=== PATIENT | female | born 1990 | race Caucasian/White ===

== ENCOUNTER 2016-10-27 08:57 | Emergency (ER) | payer OTHER ==
[~2016-10-27] VITALS: Ht 172.7 cm; Wt 63.5 kg
--- NOTE | 2016-10-27 09:52 | ED GI/GU/ABDOMINAL COMPLAINT ---
History of Present Illness General Chief Complaint: Nausea, Vomiting, Diarrhea Stated Complaint: VOMITTING Source: patient, old records Exam Limitations: no limitations Vital Signs & Intake/Output Vital Signs & Intake/Output Vital Signs Date Time Temp Pulse Resp B/P Pulse O2 O2 Flow FiO2 Ox Delivery Rate 10/27 0901 95.0 122 18 110/79 99 Room Air Allergies Coded Allergies: NO KNOWN ALLERGIES (07/31/13) Reconcile Medications Diltiazem HCl (Cartia Xt) 180 MG CAP.ER.24H 1 CAP PO DAILY HEART (Reported) Triage Note: 26 Y/O FEMALE C/O N/V/D SINCE 399. AFEBRILE. Triage Nurses Notes Reviewed? yes LMP (ages 10-50): unknown ? n Is pt currently ? No Onset: Morning Duration: hour(s):, better, waxing and waning Timing: recent history Quality/Severity: aching, moderate, vomiting Location: epigastric Radiation: no radiation Activities at Onset: rest Prior Abdominal Problems: none Past Sexual History: Unobtainable at this time Modifying Factors: Worsens With: eating. Associated Symptoms: abdominal pain, diarrhea, loss of appetite, nausea/vomiting HPI: Several hours prior to admission patient awoke with nausea vomiting loose watery stool and epigastric moderate nonradiating pain worse with drinking. She denies fever chills chest pain cough shortness of breath headache dysuria rash bleeding . Past History Travel History Traveled to [place] past 21 day No Medical History Any Pertinent Medical History? 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 No Review of Systems Review of Systems Constitutional: Reports: see HPI, malaise. EENTM: Reports: no symptoms. Respiratory: Reports: no symptoms. Cardiovascular: Reports: no symptoms. GI: Reports: see HPI, abdominal pain, diarrhea, nausea, vomiting. Genitourinary: Reports: no symptoms. Musculoskeletal: Reports: no symptoms. Skin: Reports: no symptoms. Neurological/Psychological: Reports: no symptoms. Hematologic/Endocrine: Reports: no symptoms. Immunologic/Allergic: Reports: no symptoms. All Other Systems: Reviewed and Negative Physical Exam Physical Exam General Appearance: well developed/nourished, alert, awake, anxious, moderate distress, thin Head: atraumatic, normal appearance Eyes: Bilateral: normal appearance, PERRL, EOMI, normal inspection. Ears, Nose, Throat, Mouth: hearing grossly normal, dry mucous membranes Neck: normal inspection, supple, full range of motion, normal alignment Respiratory: normal breath sounds, chest non-tender, no respiratory distress, quiet respiration, lungs clear Cardiovascular: regular rate/rhythm, normal peripheral pulses, tachycardia, norml femoral pulses equa Peripheral Pulses: 4+ carotid (R), 4+ carotid (L), 2+ radial (R), 2+ radial (L) Gastrointestinal: normal bowel sounds, soft, non-tender, no organomegaly Back: normal inspection, normal range of motion Extremities: normal range of motion, no ligament instability Neurologic/Psych: no motor/sensory deficits, awake, alert, oriented x 3, normal gait, 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 No Severe Sepsis Present: No Septic Shock Present: No Progress Differential Diagnosis: biliary colic, gastritis, peptic ulcer Plan of Care: Orders Procedure Date/time Status LIPASE 10/27 916 Complete COMPREHENSIVE METABOLIC PANEL 10/27 916 Complete CBC WITHOUT DIFFERENTIAL 10/27 916 Complete Laboratory Tests 10/27/16 0940: Anion Gap 15, Estimated GFR > 60, BUN/Creatinine Ratio 20.0, Glucose 121 H, Calcium 9.6, Total Bilirubin 2.4 H, AST 15, ALT 25, Alkaline Phosphatase 68, Total Protein 7.4, Albumin 4.6, Globulin 2.8, Albumin/Globulin Ratio 1.6, Lipase 66, CBC w Diff MAN DIFF ORDERED, RBC 4.99, MCV 85.7, MCH 29.0, RDW 13.3, MPV 7.6 , Gran % 93.9 H, Lymphocytes % 1.7 L, Monocytes % 4.0, Eosinophils % 0.4, Basophils % 0 L, Absolute Granulocytes 14.9 H, Absolute Lymphocytes 0.3 L, Absolute Monocytes 0.6, Absolute Eosinophils 0.1, Absolute Basophils 0, Platelet Estimate VERIFIED BY SMEAR, Normocytic RBCs VERIFIED, Normochromic RBCs VERIFIED , PUBS MCHC 33.8 Initial ED EKG: none Departure Departure Time of Disposition: 1039 Disposition: HOME OR SELF CARE Condition: Stable Clinical Impression Primary Impression: Gastroenteritis Secondary Impressions: Dehydration syndrome Referrals: CHRISTOPH MAURICIO,Zen MUÑOZ (PCP/Family) Referred to [facility] as new patient No Departure Forms: Customer Survey General Discharge Information RELEASE- WORK Prescriptions: Current Visit Scripts Ondansetron (Zofran Odt) 1 TAB SL TID #15 TAB Hyoscyamine Sulfate (Levsin-Sl) 1-2 TAB SL Q4P PRN abdominal pain #30 TAB Loperamide HCl (Imodium A-D) 1 TAB PO SEE ADMIN CRITERIA PRN diarrhea #24 TAB 1 tab after each loose stool up to 7 per day
[2016-10-27] MEDS ORDERED: CARTIA XT180 M1 PO (09:57)
[2016-10-27 10:05] LABS: ABSOLUTE BASOPHIL COUNT 0 /CUMM (0.0-0.2); ABSOLUTE EOSINOPHIL COUNT 0.1 /CUMM (0.0-0.7); ABSOLUTE GRANULOCYTE CT 14.9 /CUMM (1.4-6.5); ABSOLUTE LYMPH COUNT 0.3 /CUMM (1.2-3.4); ABSOLUTE MONOCYTE COUNT 0.6 /CUMM (0.10-0.60); BASOPHIL % 0 % (0.0-2.0); EOSINOPHIL % 0.4 % (0-5); GRANULOCYTE % 93.9 % (42.2-75.2); HEMATOCRIT 42.8 % (37-47); MEAN CORPUSCULAR HGB CONC 33.8 G/DL (33.0-37.0); MEAN CORPUSCULAR VOLUME 85.7 FL (81.0-99.0); MEAN PLATELET VOLUME 7.6 FL (7.4-10.4); PLATELET COUNT 282 /CUMM (130-400); RBC DISTRIBUTION WIDTH 13.3 % (11.5-14.5); RED BLOOD CELL CT 4.99 /CUMM (4.20-5.40); WHITE BLOOD CELL COUNT 15.9 /CUMM (4.8-10.8)
[2016-10-27] MEDS ORDERED: ZOFRAN ODT4 M1 SL (10:42)
[2016-10-27] MEDS ORDERED: IMODIUM A-D2 M1 PO (10:42)
[2016-10-27] MEDS ORDERED: LEVSIN-SL0.125 MG SL (10:42)
[2016-10-27 11:39] VITALS: BP 112/77
== END 2016-10-27 11:40 ==
LOC: ERH 08:57
PROVIDERS: Emergency Medicine
DX: K52.9 Noninfective gastroenteritis and colitis, unspecified (principal); E86.0 Dehydration
CPT/HCPCS: 96361; 96374; 96375; J2405